=== PATIENT | female | born 1970 | race Caucasian/White ===

== ENCOUNTER 2018-07-07 16:38 | Emergency (ER) | payer MEDICAID ==
[2018-07-07 16:53] VITALS: BP 140/82
[2018-07-07] MEDS ORDERED: CLINDAMYCIN HCL 150 MG CAPSULE PO ONE (17:17)
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
== END 2018-07-07 17:35 | disposition home or self-care (01) ==
LOC: ER 16:38
DX: K02.9 Dental caries, unspecified (principal); K08.89 Other specified disorders of teeth and supporting structures; R22.0 Localized swelling, mass and lump, head; F17.210 Nicotine dependence, cigarettes, uncomplicated; Z71.6 Tobacco abuse counseling; Z87.81 Personal history of (healed) traumatic fracture
CPT/HCPCS: 99282; J3490

== ENCOUNTER 2019-02-13 11:47 | Emergency (ER) | payer MEDICAID ==
[2019-02-13 11:50] VITALS: BP 129/78
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
== END 2019-02-13 12:10 | disposition home or self-care (01) ==
LOC: ER 11:47
DX: L55.0 Sunburn of first degree (principal)
CPT/HCPCS: 99282

== ENCOUNTER → 2019-08-25 | Outpatient (CLI) | payer MEDICAID ==
--- NOTE | 2019-08-25 15:50 | WOMENS IMAGING REPORT ---
EXAM DESCRIPTION: 3D SCREENING MAMMO BILAT COMPLETED DATE/TIME: 08/25/2019 11:14 am REASON FOR STUDY: Z12.31 SCREENING MAMMO I51.7 CARDIOMEGALY Z12.31 ENCNTR SCREEN MAMMOGRAM FOR MAL IGNANT NEOPLASM OF KARLY COMPARISON: Baseline study EXAM PARAMETERS: Views: Standard craniocaudal and mediolateral oblique views of each breast recorded using digital acquisition and breast tomosynthesis. Read with the assistance of CAD. .[facility] - [employer]2 Manufacturing Operations Manager Version 9.2 LIMITATIONS: None. FINDINGS: No suspicious masses, suspicious calcifications or architectural distortion. No areas of c oncern. IMPRESSION: NEGATIVE MAMMOGRAM. BIRADS 1. BREAST DENSITY: d. The breasts are extremely dense, which lowers the sensitivity of mammography. BIRAD: ASSESSMENT: 1 NEGATIVE RECOMMENDATION: ROUTINE SCREENING Please continue yearly bilateral screening mammography/tomosynthesis in July 2020 COMMENT: The patient has been notified of the results by letter per SA requirements. Additional no tification policies are in place for contacting patient with suspicious or incomplete findings. Quality ID #[id number]: [employer] recommends an annual screening mammogram for women aged 40 years or over. This facility utilizes a reminder system to ensure that all patients receive reminder letters, and/or direct phone calls for appointments. This includes reminders for routine scr eening mammograms, diagnostic mammograms, or other Breast Imaging Interventions when appropriate. Th is patient will be placed in the appropriate reminder system. TECHNICAL DOCUMENTATION: FINDING NUMBER: (1) ASSESSMENT: (1) JOB ID: [id number] [employer]- All Rights Reserved Reading location - IP/workstation name: [email or web address]
--- NOTE | 2019-08-25 18:41 | XCELERA REPORT ---
[address] [address] Transthoracic Echocardiogram Report Name: GUSTABO VALDOVINOS Age: 48 yrs Gender: Female : 1970 Patient Status: Outpatient Patient Location: RAD Study Date: 08/25/2019 09:50 AM Height: 66 in Weight: 116 lb BSA: 1.6 m2 Procedure: A complete two-dimensional transthoracic echocardiogram was performed (2D, M-mode, spectral and color flow Doppler). The study was technically difficult with many images being suboptimal in quality. Reason For Study: CARDIOMEGALY Ordering Physician: BRITTANIE AMADO Performed By: Jocelyn Fong Interpretation Summary The left ventricle has normal cavity size with globally normal systolic function. Estimated left ventricular ejection fraction is 55%. There is normal left ventricular wall thickness. The left ventricle is grossly normal size. LV diastolic function could not be adequately assessed. Wall motion cannot be accurately commented on, but no definite regional wall motion abnormalities noted. The right ventricle is borderline dilated. The right ventricular systolic function is normal. The left atrial size is normal. The right atrium is normal in size There is a trace amount of mitral regurgitation There is no mitral valve stenosis. No aortic regurgitation is present. There is no aortic valve stenosis There is a trace or physiologic amount of tricuspid regurgitation Tricuspid regurgitation jet envelope not well defined to measure RV systolic pressure accurately. The aortic root is not well visualized but is probably normal size. The inferior vena cava appeared normal and decreased > 50% with respiration (RAP 5-10 mmHg) There is no pericardial effusion. MMode/2D Measurements & Calculations RVDd: 2.5 cm LVIDd: 3.8 cm FS: 33.8 % Ao root diam: 2.5 cm IVSd: 0.77 cm LVIDs: 2.5 cm EDV(Teich): 60.7 ml Ao root area: 5.0 cm2 LVPWd: 0.76 cm ESV(Teich): 22.2 ml LA dimension: 2.6 cm EF(Teich): 63.5 % Doppler Measurements & Calculations MV E max joana: MV P1/2t max joana: Ao V2 max: LV V1 max P.7 cm/sec 109.3 cm/sec 116.1 cm/sec 5.4 mmHg MV A max joana: MV P1/2t: 75.2 msec Ao max P.4 mmHgLV V1 max: 72.6 cm/sec MVA(P1/2t): 2.9 cm2 116.0 cm/sec MV E/A: 1.3 MV dec slope: 425.7 cm/sec2 MV dec time: 0.24 sec PA V2 max: TR max joana: MV P1/2t-pr_phl: 84.9 cm/sec 236.2 cm/sec 75.2 msec PA max PG: TR max P.3 mmHg 2.9 mmHg Left Ventricle The left ventricle is grossly normal size. There is normal left ventricular wall thickness. The left ventricle has normal cavity size with globally normal systolic function. Estimated left ventricular ejection fraction is 55%. LV diastolic function could not be adequately assessed. Wall motion cannot be accurately commented on, but no definite regional wall motion abnormalities noted. Right Ventricle The right ventricle is borderline dilated. There is normal right ventricular wall thickness. The right ventricular systolic function is normal. Atria The right atrium is normal in size. The left atrial size is normal. Interarterial septum not well visualized and not well dopplered. Cannot comment on ASD/PFO presence. Mitral Valve The mitral valve is grossly normal. There is no mitral valve stenosis. There is a trace amount of mitral regurgitation. Aortic Valve The aortic valve is grossly normal. There is no aortic valve stenosis. No aortic regurgitation is present. Tricuspid Valve The tricuspid valve is not well visualized, but is grossly normal. There is no tricuspid stenosis. There is a trace or physiologic amount of tricuspid regurgitation. Tricuspid regurgitation jet envelope not well defined to measure RV systolic pressure accurately. Pulmonic Valve The pulmonic valve is not well visualized. Great Vessels The aortic root is not well visualized but is probably normal size. The inferior vena cava appeared normal and decreased > 50% with respiration (RAP 5-10 mmHg). Effusions There is no pericardial effusion. : BRITTANIE AMADO Shyamal
== END ==
LOC: RAD 09:21
PROVIDERS: ATTEND Physician Assistant
DX: Z12.31 Encounter for screening mammogram for malignant neoplasm of breast (principal); I51.7 Cardiomegaly
CPT/HCPCS: 77063; 77067; 93306

== ENCOUNTER 2020-08-11 16:24 | Emergency (ER) | payer MEDICAID ==
[2020-08-11 16:46] VITALS: BP 127/78
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
--- NOTE | 2020-08-11 17:32 | RADIOLOGY REPORT (SQ) ---
EXAM DESCRIPTION: CHEST SINGLE VIEW IMAGES COMPLETED DATE/TIME: 08/11/2020 2:25 pm REASON FOR STUDY: chest pain sob COMPARISON: None. EXAM PARAMETERS: NUMBER OF VIEWS: One view. TECHNIQUE: Single frontal radiographic view of the chest acquired. RADIATION DOSE: NA LIMITATIONS: None. FINDINGS: LUNGS AND PLEURA: Lungs are mildly hyperinflated. No consolidation, pleural effusion, or pneumothorax. Biapical opacities probably representing scarring. There are nodular opacities in the lower chest bilaterally which appear to be relatively symmetric and likely represent the patient's n ipple shadows. If indicated, repeat imaging with nipple markers could be performed. MEDIASTINUM AND HILAR STRUCTURES: No masses. Contour normal. HEART AND VASCULAR STRUCTURES: Heart normal in size. Normal vasculature. BONES: No acute findings. HARDWARE: None in the chest. OTHER: No other significant finding. IMPRESSION: COPD. Bilateral nodular opacities likely corresponding to nipple shadows. No other acu te radiographic abnormality. TECHNICAL DOCUMENTATION: JOB ID: [id number] 2010 [employer]- All Rights Reserved Reading location - IP/workstation name: [email or web address]
[2020-08-11 17:54] LABS: ABSOLUTE BASOPHILS # (AUTO) 0.1 10^3/uL (0.0-0.2); ABSOLUTE EOSINOPHILS # (AUTO) 0.1 10^3/uL (0.0-0.6); ABSOLUTE LYMPHOCYTES (AUTO) 3.4 10^3/uL (0.5-4.7); BASOPHILS % (AUTO) 0.4 % (0-2); EOSINOPHILS % (AUTO) 1.1 % (0-6); HEMATOCRIT 40.2 % (36.0-47.0); HEMOGLOBIN 13.6 g/dL (12.0-15.5); LYMPHOCYTES % (AUTO) 29.4 % (13-45); MEAN CORPUSCULAR HEMOGLOBIN 30.7 pg (27.0-33.4); MEAN CORPUSCULAR HGB CONC 33.9 g/dL (32.0-36.0); MEAN CORPUSCULAR VOLUME 91 fl (80-97); MONOCYTES % (AUTO) 8.5 % (3-13); PLATELET COUNT 244 10^3/uL (150-450); RED BLOOD COUNT 4.44 10^6/uL (3.72-5.28); RED CELL DISTRIBUTION WIDTH 13.5 % (11.5-14.0); SEGMENTED NEUTROPHILS % (AUTO) 60.6 % (42-78); TOTAL CELLS COUNTED % (AUTO) 100 %; WHITE BLOOD COUNT 11.6 10^3/uL (4.0-10.5)
[2020-08-11 18:15] LABS: ALBUMIN 4.2 g/dL (3.5-5.0); ALKALINE PHOSPHATASE 58 U/L (38-126); ASPARTATE AMINO TRANSFERASE 20 U/L (14-36); BILIRUBIN,DIRECT 0.2 mg/dL (0.0-0.4); BILIRUBIN,TOTAL 0.7 mg/dL (0.2-1.3); BLOOD UREA NITROGEN 13 mg/dL (7-20); CALCIUM 9.1 mg/dL (8.4-10.2); CARBON DIOXIDE 27 mmol/L (22-30); GLUCOSE 87 mg/dL (75-110); POTASSIUM 3.9 mmol/L (3.6-5.0); TOTAL PROTEIN 7.2 g/dL (6.3-8.2)
[2020-08-11 18:23] LABS: CHLORIDE 104 mmol/L (98-107)
[2020-08-11 18:26] LABS: ANION GAP 6 (5-19)
[2020-08-11 18:28] LABS: NT PRO BNP 97 pg/mL (<125); TROPONIN I < 0.012 ng/mL
--- NOTE | 2020-08-11 20:04 | ER Document Report ---
ED General - General Chief Complaint: Shortness Of Breath Stated Complaint: DIZZINESS Time Seen by Provider: 08/11/20 17:11 Primary Care Provider: BRITTANIE AMADO PA [NO LOCAL MD] - Follow up as needed TRAVEL OUTSIDE OF THE [place] IN LAST 30 DAYS: No - HPI Notes: Patient is a 49-year-old female who presents to the emergency department for evaluation of 2 weeks of chest tightness, cough, shortness of breath. She states that she has had a week of diminished sense of smell and taste. She is had some nausea but no emesis. No fevers or chills. No diarrhea. She states her chest feels tight like she has felt when she had walking pneumonia in the past. She denies any current chest pain at this time. She has been tested for Covid, once via EMS, and was found to be negative. No known Covid contacts to her knowledge. - Related Data Allergies/Adverse Reactions: No Known Allergies Allergy (Verified 08/11/20 17:03) Home Medications: List reviewed at bedside Past Medical History - General Information source: Patient - Social History Smoking Status: Former Smoker Family History: Reviewed & Not Pertinent - Past Medical History Cardiac Medical History: Reports: Hx Hypercholesterolemia, Hx Hypertension Pulmonary Medical History: Reports: Hx Bronchitis - Chronic, Hx COPD, Hx Pneumonia Renal/ Medical History: Denies: Hx Peritoneal Dialysis GI Medical History: Reports: Hx Gastroesophageal Reflux Disease Musculoskeletal Medical History: Reports Hx Musculoskeletal Trauma - Multiple facial fractures to the left side of her face, dislocated patella Psychiatric Medical History: Reports: Hx Post Traumatic Stress Disorder Traumatic Medical History: Reports: Hx Fractures - Facial fractures Past Surgical History: Reports: Hx Hysterectomy, Hx Nose Surgery - Sinus surgery, Hx Orthopedic Surgery - Metal plate to left side of face, right knee surgery for dislocated patella, Hx Tubal Ligation Review of Systems - Review of Systems Constitutional: No symptoms reported EENT: See HPI Cardiovascular: See HPI Respiratory: See HPI Gastrointestinal: See HPI Genitourinary: No symptoms reported Musculoskeletal: No symptoms reported Skin: No symptoms reported Neurological/Psychological: No symptoms reported Physical Exam - Vital signs Vitals: Temp Pulse Resp BP Pulse Ox 98.2 F 83 18 127/78 H 98 08/11/20 16:45 08/11/20 16:45 08/11/20 16:45 08/11/20 16:45 08/11/20 16:45 - Notes Notes: Vital signs reviewed, please refer to chart. Head is normocephalic, atraumatic. Pupils equal round, reactive to light. Neck is supple without meningismus. Heart is regular rate and rhythm. Lungs are clear to auscultation bilaterally. Abdomen is soft, nontender, normoactive bowel sounds throughout. Extremities without cyanosis, clubbing. Posterior calves are nontender. Peripheral pulses are equal. Skin is warm and dry. Patient is awake, alert, neurological exam is nonfocal. Course - Re-evaluation Re-evalutation: 08/11/20 20:07 Patient presents emergency department for evaluation. Her symptoms are most consistent with a viral upper respiratory illness. She is 100% on room air. Her chest x-ray shows COPD but no infiltrative processes. Her laboratory investigations are unremarkable. In regards to her chest pain it is certainly atypical and she has normal EKG, normal cardiac enzymes. I will order 1 more Covid test, as the only when she had was a rapid that in the past does not is reliable. Patient is amenable to this plan. She is to return to the ED with worsening or new concerning symptoms of any sort. - Vital Signs Vital signs: Temp Pulse Resp BP Pulse Ox 98.2 F 83 18 127/78 H 100 08/11/20 16:45 08/11/20 16:45 08/11/20 16:45 08/11/20 16:45 08/11/20 17:57 - Laboratory Results Result Diagrams: 08/11/20 17:40 08/11/20 17:40 Laboratory Results Interpreted: 08/11/20 08/11/20 17:40 17:40 WBC 11.6 H Sodium 136.6 L Critical Laboratory Results Reviewed: No Critical Results - Radiology Results Radiology Results Interpreted: 08/11/20 20:07 Chest X-Ray 08/11/20 17:16 IMPRESSION: COPD. Bilateral nodular opacities likely corresponding to nipple shadows. No other acute radiographic abnormality. Critical Radiology Results Reviewed: No Critical Results - EKG Interpretation by Me Additional EKG results interpreted by me: 08/11/20 20:08 Sinus mechanism with a rate of 61 bpm. Normal axis and intervals. No acute ST changes concerning for ischemia or infarction. Discharge - Discharge Clinical Impression: Viral respiratory illness, Person under investigation for COVID-19 Chest pain Qualifiers: Chest pain type: unspecified Qualified Code(s): R07.9 - Chest pain, unspecified Condition: Stable Disposition: HOME, SELF-CARE Instructions: COVID-19 Guidance for Persons Under Investigation, Chest Pain of Unclear Cause ([facility]), Viral Syndrome ([facility]) Additional Instructions: You are oxygenating well. Your x-ray shows no signs of pneumonia. Your blood work and EKG are unremarkable. You have been tested for COVID-19. Please quarantine at home, you will be contacted with results. Return to the emergency department with worsening or new concerning symptoms of any sort. Referrals: BRITTANIE AMADO PA [NO LOCAL MD] - Follow up as needed
--- NOTE | 2020-08-12 20:36 | EKG REPORT ---
SEVERITY:- NORMAL ECG - SINUS RHYTHM : Confirmed by: Osiris Luque MD 12-Aug-2020 20:35:11
== END 2020-08-11 20:33 | disposition home or self-care (01) ==
LOC: ER 16:24
DX: J98.8 Other specified respiratory disorders (principal); B97.89 Other viral agents as the cause of diseases classified elsewhere; J44.9 Chronic obstructive pulmonary disease, unspecified; R07.89 Other chest pain; R05 Cough; R06.02 Shortness of breath; R43.8 Other disturbances of smell and taste; I10 Essential (primary) hypertension; Z87.01 Personal history of pneumonia (recurrent); Z87.891 Personal history of nicotine dependence; Z20.822 Contact with and (suspected) exposure to COVID-19
CPT/HCPCS: 93005; 99285; 36415; 85025; 87635; 80053; 84484; 83880; 71045; 93010; C9803